=== PATIENT | male | born 2000 | race Caucasian/White ===

== ENCOUNTER 2019-03-21 02:04 | Emergency (ER) | payer SELFPAY ==
[2019-03-21] MEDS ORDERED: Ondansetron PF 4 MG/2 ML Vial ONE (02:19)
[2019-03-21] MEDS ORDERED: Ketorolac Tromethamine 30 MG/ML VIAL ONE (03:15)
== END 2019-03-21 04:33 | disposition home or self-care (01) ==
LOC: ERS 02:04
DX: F10.129 Alcohol abuse with intoxication, unspecified (principal); R11.2 Nausea with vomiting, unspecified
CPT/HCPCS: 96361; 96374; 96375; J1885; J2405